=== PATIENT | male | born 1975 | race Caucasian/White ===

== ENCOUNTER 2017-07-04 16:16 | Emergency (ER) | payer MEDICARE, SELFPAY ==
[2017-07-04 16:17] VITALS: BP 152/106; PULSE 105; RESP 17; TEMP 37.2; O2SAT 97; BMI 29.2
--- NOTE | 2017-07-04 16:35 | CT_ITS ---
CT Spine Lumbar W/O Contrast INDICATION: BACK PAIN AFTER POP IN BACK 07/03/17 8 PREV BACK SURGERIES COMPARISON: None TECHNIQUE: High-resolution axial CT imaging of the lumbar spine with coronal and sagittal reformatted images. FINDINGS: There were postsurgical changes from L4-S1 interbody fusion and pedicle screws in the L4 and S1 levels bilaterally with vertical fixation rods. There is normal lumbar lordosis. Mild left-sided disc osteophyte formation is noted at L4-5 and L5-S1 resulting in moderate neuroforaminal narrowing. The level above the fusion, L3-4 demonstrates mild diffuse disc bulging. There is no evidence of fracture or listhesis. There is normal alignment of the SI joints. CT/Spine Lumbar without Contrast IMPRESSION: Postsurgical and mild degenerative changes at the lumbar spine as detailed above. No evidence of osseous injury or listhesis. at 1733 Reported and signed by: Sunitha Sesay MD Electronically Signed: Sunitha Sesay MD at 17:31 EDT Tel , Service support ,
[2017-07-04] MEDS: Ketorolac 30 MG/ML Syringe IV (16:49)
--- NOTE | 2017-07-04 18:08 | ED.VISSUMM ---
- ER Visit Summary Date of Service: 07/04/17 Chief Complaint: Back pain History of Present Illness: The patient is a 41 M presenting for evaluation secondary to back pain. Patient has a prior history of 8 back surgeries and both the placement and removal of a lumbar stimulator. Patient states that today he had a sudden onset of back pain. He states that he was going from a sitting to a standing position and felt a sudden severe pop in his lower back and started to have pain that went from his lumbar back down to his left buttock, and numbness that went from his left thigh all the way down to his left toes. Patient states that he has not had any bowel or bladder incontinence, denies any fevers, denies any recent injections, history of IV drug use, or procedures. Denies any fevers or weight loss. Patient states that he took aspirin which did not alleviate his symptoms. Pain is worse with movement and with palpation. Physical Examination: Vitals: Within normal limits General: Well-nourished well-developed no acute distress Head: Normocephalic atraumatic ENT: Moist mucous membranes Neck: Supple no JVD Cardiovascular: Heart regular rate and rhythm no murmurs Respiratory: Respirations nondistressed, lung sounds clear to auscultation bilaterally Abdominal: Soft, nontender, nondistended, normal bowel sounds, no evidence of abdominal masses or pulsatile mass Back: Normal to inspection, both midline lumbar as well as left-sided paraspinal tenderness to palpation, straight leg raise positive on the left at approximately 15? Extremities: Nontender, nonedematous, 2+ radial and PT pulses bilaterally symmetric Skin: Normal color no rash Neuro: 5/5 strength hip flexion, knee flexion, knee extension, dorsiflexion, plantarflexion. Left-sided extensor hallucis longus is 4 out of 5 while right side is 5 out of 5 sensation intact over all dermatomes of the lower extremities bilaterally, 2+ patellar and Achilles reflexes bilaterally symmetric, negative clonus bilaterally Test Results: CT lumbar spine shows L4 and L5 osteophytes that are causing foraminal narrowing. Emergency Department Course and Treatment: Patient presented secondary to back pain. He does have radiation of the pain to the left side, and weakness over the L5-S1 dermatome. CT showed some neuroforaminal narrowing in this area, but this point there is no evidence of spinal epidural hematoma, abscess, cauda equina syndrome, or reason for urgent surgical intervention. At this point I believe the patient can be treated with a course of Medrol. Patient has a spine surgeon in [place], he was recommended to follow-up there. He was given signs and symptoms for which return. Disposition: Discharge Impression: 1. Lumbar radiculopathy This note was generated with [employer] dictation software. It may contain incorrect words, spelling, and punctuation that were not noted in review of the chart prior to signing ED Disposition - Plan for ED Patient: Disposition: Home or Assisted Living Chief Complaint: Back Diagnosis: Lumbar radiculopathy, acute Instructions: ED Sciatica Prescriptions: MethylPREDNISolone DosePak [Medrol DosePak] 4 mg PO UD #1 box Additional Instructions: Followup with your spine surgeon
--- NOTE | 2017-07-04 18:12 | ED.DCSUM_ITS ---
- ER Visit Summary Date of Service: 07/04/17 Chief Complaint: Back pain History of Present Illness: The patient is a 41 M presenting for evaluation secondary to back pain. Patient has a prior history of 8 back surgeries and both the placement and removal of a lumbar stimulator. Patient states that today he had a sudden onset of back pain. He states that he was going from a sitting to a standing position and felt a sudden severe pop in his lower back and started to have pain that went from his lumbar back down to his left buttock , and numbness that went from his left thigh all the way down to his left toes. Patient states that he has not had any bowel or bladder incontinence, denies any fevers, denies any recent injections, history of IV drug use, or procedures. Denies any fevers or weight loss. Patient states that he took aspirin which did not alleviate his symptoms. Pain is worse with movement and with palpation. Physical Examination: Vitals: Within normal limits General: Well-nourished well-developed no acute distress Head: Normocephalic atraumatic ENT: Moist mucous membranes Neck: Supple no JVD Cardiovascular: Heart regular rate and rhythm no murmurs Respiratory: Respirations nondistressed, lung sounds clear to auscultation bilaterally Abdominal: Soft, nontender, nondistended, normal bowel sounds, no evidence of abdominal masses or pulsatile mass Back: Normal to inspection, both midline lumbar as well as left-sided paraspinal tenderness to palpation, straight leg raise positive on the left at approximately 15? Extremities: Nontender, nonedematous, 2+ radial and PT pulses bilaterally symmetric Skin: Normal color no rash Neuro: 5/5 strength hip flexion, knee flexion, knee extension, dorsiflexion, plantarflexion. Left-sided extensor hallucis longus is 4 out of 5 while right side is 5 out of 5 sensation intact over all dermatomes of the lower extremities bilaterally, 2+ patellar and Achilles reflexes bilaterally symmetric , negative clonus bilaterally Test Results: CT lumbar spine shows L4 and L5 osteophytes that are causing foraminal narrowing. Emergency Department Course and Treatment: Patient presented secondary to back pain. He does have radiation of the pain to the left side, and weakness over the L5-S1 dermatome. CT showed some neuroforaminal narrowing in this area, but this point there is no evidence of spinal epidural hematoma, abscess, cauda equina syndrome, or reason for urgent surgical intervention. At this point I believe the patient can be treated with a course of Medrol. Patient has a spine surgeon in [place], he was recommended to follow-up there. He was given signs and symptoms for which return. Disposition: Discharge Impression: 1. Lumbar radiculopathy This note was generated with [employer] dictation software. It may contain incorrect words, spelling, and punctuation that were not noted in review of the chart prior to signing ED Disposition - Plan for ED Patient: Disposition: Home or Assisted Living Chief Complaint: Back Diagnosis: Lumbar radiculopathy, acute Instructions: ED Sciatica Prescriptions: MethylPREDNISolone DosePak [Medrol DosePak] 4 mg PO UD #1 box Additional Instructions: Followup with your spine surgeon
[2017-07-04 18:26] VITALS: RESP 16
== END 2017-07-04 18:26 | disposition home or self-care (01) ==
PROVIDERS: Emergency Provider Emergency Medicine
DX: M54.16 Radiculopathy, lumbar region (principal)
CPT/HCPCS: 72131; 96374; 99282; A4216

== ENCOUNTER 2017-09-12 17:29 | Emergency (ER) | payer MEDICARE, SELFPAY ==
[2017-09-12 17:30] VITALS: BP 172/104; PULSE 111; RESP 20; TEMP 37.8; O2SAT 99; BMI 26.2
--- NOTE | 2017-09-12 17:38 | CT_ITS ---
STUDY: CT BRAIN WITHOUT CONTRAST REASON FOR EXAM: Male, 41 years old. Postop status post craniotomy RADIATION DOSAGE (If Supplied By Facility): CTDIvol = ( 44.99 ) mGy, DLP = ( 914.22 ) mGycm TECHNIQUE: Transaxial CT imaging of the brain was performed without administration of intravenous contrast material. Individualized dose optimization techniques were used for this CT. COMPARISON: None. FINDINGS: Normal soft tissue structures. Postop change status post suboccipital craniectomy. There is a fluid collection noted in the soft tissues in the scalp at the operative site Normal size ventricles and extra-axial spaces for the patient's age. Normal white matter tracts of the cerebral hemispheres. Normal basal ganglia and thalami. Normal brainstem. Normal cerebellum. There is no intracranial hemorrhage. There are no findings of an acute ischemic infarction. Mucous retention cyst in left sphenoid sinus. CT/Brain/Head without Contrast IMPRESSION: Postsurgical changes. No evidence for acute intracranial bleed Electronically Signed: Yan Sánchez MD at 19:26 EDT , Service support ,
--- NOTE | 2017-09-12 17:39 | EKG12_ITS ---
Test Reason : CP Blood Pressure : / mmHG Vent. Rate : 106 BPM Atrial Rate : 106 BPM P-R Int : 162 ms QRS Dur : 088 ms QT Int : 324 ms P-R-T Axes : 026 005 000 degrees QTc Int : 430 ms Sinus tachycardia Nonspecific T wave abnormality Abnormal ECG Confirmed by JUNAID LÓPEZ, GHAZAL ([id number]), brands editor KATELYN WORTHINGTON ([id number]) on 09/15/2017 1:25:00 PM Referred By: YOLANDA Confirmed By:GHAZAL QUIROGA MD
--- NOTE | 2017-09-12 17:43 | NURSING ---
NO OLD EKGS
[2017-09-12 17:58] LABS: Absolute Lymphocyte Count 1.58 X10^3/ul (0.83-4.51); Absolute Neutrophil Count 5.1 X10^3/uL (2.0-7.7); Basophil# 0.03 X10^3/uL; Basophil% 0.4 % (0-1); Eosinophil# 0.09 X10^3/uL; Eosinophils% 1.2 % (0-5); Hematocrit 43.1 % (40-54); Hemoglobin 14.1 g/dl (13.0-16.5); Lymphocyte # 1.58 X10^3/ul (4.0); Lymphocyte % 21.5 % (19-41); Mean Corp Hgb Conc 32.7 g/gl (32-36); Mean Corpuscular Hgb 28.8 pg (27.0-32.0); Mean Corpuscular Volume 88.1 fL (80-94); Mean Platelet Vol. 9.7 fl (6.2-12.0); Monocyte# 0.53 X10^3/uL; Monocyte% 7.2 % (0-10); Neutrophil # 5.11 X10^3/uL (2.7-7.7); Neutrophil % 69.4 % (47-70); Platelet Count 334 K/mm3 (150-450); RBC Distribution Width CV 14.3 % (11.6-14.6); RBC Distribution Width SD 45.9 fl (35.1-43.9); Red Blood Count 4.89 M/mm3 (4.6-6.2); White Blood Count 7.4 K/mm3 (4.4-11.0)
[2017-09-12 18:01] LABS: POSITIVE COUNT NO; POSITIVE DIFFERENTIAL NO; POSITIVE MORPHOLOGY NO
[2017-09-12 20:01] VITALS: PULSE 85; RESP 17; O2SAT 98
--- NOTE | 2017-09-12 20:10 | ED.DCSUM_ITS ---
- ER Visit Summary Date of Service: 09/12/17 Chief Complaint: Fall unknown reason with blunt head trauma History of Present Illness: The patient is a 41 M who was at home. He states he fell. He is uncertain whether he passed out or is amnestic because he hit his head. He recalls no prodrome. He is status post craniotomy for resection of brain mass. This was performed by Dr. Pham at [facility]. He states the operation was in July. He does report headache and feeling nauseous. He denies double vision, blurred vision loss of vision. Denies ringing in his ears. Denies decreased hearing. He denies any neck pain. Denies any paresthesia, anesthesia motors. He denies chest pain, palpitations or rapid heartbeat. He denies shortness of breath, cough or dyspnea on exertion. He does report nausea without vomiting or diarrhea. He is on no anticoagulant. He has no other complaints. Physical Examination: Vital signs are noted and are marked for an elevated blood pressure 172/104. Incision site is intact without evidence infection. There is no hemotympanum. There is no CSF otorrhea or rhinorrhea. There is no septal deviation hematoma. There is no TMJ tenderness. There is no pain the patient cervical spine. Trach is midline. Heart is regular without murmur, gallop or rub. S1 and S2 are normal. Lungs are clear to auscultation with good movement of air bilaterally. Abdomen soft nontender. He is alert oriented ?3. There is no motor sensory deficit. Gait was observed and normal. Cranial 2 through 12 intact. Test Results: EKG was obtained and revealed a sinus rhythm rate of [address]-T wave changes. LA interval and QRS duration are normal. CT of the head reviewed by me revealed no acute intracranial process. Radiologist interpretation was post operative changes. Emergency Department Course and Treatment: Will obtain hemogram to assess H&H. EKG to evaluate for cardiac ischemia. He is placed on a monitor to evaluate for cardiac dysrhythmia. Monitor revealed a sinus rhythm without ectopy. Treatment Plan: Since workup is unremarkable he will be discharged to home with appropriate home-going instructions. Disposition: Discharged to home Impression: 1. Closed head injury 2. Fall/syncope with loss of conscious unknown etiology This note was generated with [employer] software. It may contain incorrect words, spelling, and punctuation that were not noted in review of the chart prior to signing ED Disposition - Plan for ED Patient: Disposition: Home or Assisted Living Chief Complaint: Head Injury Instructions: ED Head Injury Closed, ED Fainting Unkn Cause Referrals: Care Physician,No Primary [Primary Care Provider] - Doctor,Your [STAFF PHYSICIAN] - As Needed
[2017-09-12 20:23] VITALS: BP 142/90; PULSE 99; RESP 18; O2SAT 98
== END 2017-09-12 20:23 | disposition home or self-care (01) ==
PROVIDERS: Emergency Provider Emergency Medicine
DX: S06.9X9A Unspecified intracranial injury with loss of consciousness of unspecified duration, initial encounter (principal); W19.XXXA Unspecified fall, initial encounter; Y93.9 Activity, unspecified; Y92.9 Unspecified place or not applicable; R55 Syncope and collapse; R00.0 Tachycardia, unspecified
CPT/HCPCS: 70450; 85025; 93005; 99284

== ENCOUNTER 2018-04-22 17:01 | Emergency (ER) | payer MEDICARE, SELFPAY ==
[2018-04-22 17:03] VITALS: BP 148/104; PULSE 122; RESP 18; TEMP 37.2; O2SAT 99; BMI 26.4
--- NOTE | 2018-04-22 18:26 | ED.DCSUM_ITS ---
- ER Visit Summary Date of Service: 04/22/18 Chief Complaint: Nosebleed [] History of Present Illness: The patient is a 42 M [presents the emergency department complaint of a nosebleed that started about an hour ago. Patient states he was going to get in the shower when he started pouring blood from the right side of his nose. Patient states now the blood is coming on both sides. Patient is not on any blood thinners. He denies any trauma to his nose. Patient does not get frequent nosebleeds. Patient's only medical history is history of a brain tumor that required craniotomy.] Physical Examination: [HEENT-PERRLA, EOMI. Cranial nerves II through XII grossly intact. TMs clear. Mucous membranes moist. No adenopathy. Right nasal vault-patient has active bleeding and I am unable to visualize the source. Patient has blood down the oropharynx. Cardiovascular-regular rate and rhythm without murmur or ectopy Lungs-clear to auscultation, chest wall stable without crepitus or subcu emphysema Abdomen-normoactive bowel sounds, soft, nontender, no rebound or rigidity, no peritoneal signs. Extremities-intact ?4, normal range of motion, normal pulses, atraumatic] Test Results: [None indicated] Emergency Department Course and Treatment: [Patient had a Rhino Rocket placed in the right nasal vault and he was observed in the emergency department for over an hour. Patient had no further bleeding on the posterior oropharynx. There was no bleeding from the left side of the nose.] Treatment Plan: [Patient will be started on Augmentin and will be referred to ENT for follow-up. Patient also advised to monitor his blood pressure at home and keep a journal and follow-up with primary care physician.] Disposition: [Discharged home in stable condition] Impression: [Right epistaxis-resolved] This note was generated with [employer] dictation software. It may contain incorrect words, spelling, and punctuation that were not noted in review of the chart prior to signing ED Disposition - Plan for ED Patient: Referrals: Care Physician,No Primary [Primary Care Provider] -
--- NOTE | 2018-04-22 18:26 | ED.DEP ---
ED Disposition - Plan for ED Patient: Instructions: Nosebleed Prescriptions: Amoxicillin/Potassium Clav [Augmentin 875-125 Tablet] 1 ea PO BID #10 tab Referrals: Care Physician,No Primary [Primary Care Provider] - Milo Gonzalez MD [STAFF PHYSICIAN] - 3-5 Days
[2018-04-22 18:50] VITALS: BP 146/81; PULSE 85; RESP 18; O2SAT 99
== END 2018-04-22 18:51 | disposition home or self-care (01) ==
LOC: ED 18:28
PROVIDERS: Emergency Provider Emergency Medicine
DX: R04.0 Epistaxis (principal); Z72.0 Tobacco use
CPT/HCPCS: 30901; 99282

== ENCOUNTER → 2018-11-22 09:14 | Outpatient (CLI) | payer MEDICARE, SELFPAY ==
--- NOTE | 2018-11-22 09:15 | RAD_ITS ---
STUDY: X-RAY - RIGHT KNEE REASON FOR EXAM: Male, 42 years old. Injury 4 days ago. Difficulty bending knee TECHNIQUE: 3 view(s) of the knee. COMPARISON: None. FINDINGS: Normal visualized distal femur. Normal visualized proximal tibia and fibula. Normal proximal tibiofibular articulation. There is no demonstrated fracture. Normal medial femorotibial compartment. Normal lateral femorotibial compartment. Normal patellofemoral articulation. There is no demonstrated joint effusion. The soft tissue structures are unremarkable. RAD/Knee 4 or More Views IMPRESSION: Normal x-ray examination of the knee. Electronically Signed: Luke Manuel DO at 17:25 EDT Tel [phone], Service support ,
--- NOTE | 2018-11-22 09:15 | RAD_ITS ---
STUDY: X-RAY - RIGHT ANKLE REASON FOR EXAM: Male, 42 years old. Injury 4 days ago. Pain and swelling. TECHNIQUE: 3 view(s) of the ankle. COMPARISON: None. FINDINGS: Normal visualized distal tibia and fibula. Normal medial and lateral malleoli. Normal tibiotalar articulation and ankle mortise. Normal visualized talus and calcaneus. The visualized subtalar, talonavicular, calcaneocuboid and tarsal articulations are normal. Mild soft tissue swelling over the anteromedial ankle. RAD/Ankle min 3 Views IMPRESSION: Soft tissue swelling without fracture or dislocation. Electronically Signed: Luke Manuel DO at 17:25 EDT Tel [phone], Service support ,
== END ==
PROVIDERS: Referring Provider Orthopaedic Surgery; Visit Provider Orthopaedic Surgery
DX: M25.571 Pain in right ankle and joints of right foot (principal); M25.561 Pain in right knee
CPT/HCPCS: 73564; 73610

== ENCOUNTER 2018-12-13 10:03 | Outpatient (RCR) | payer MEDICARE, SELFPAY ==
[2018-12-01 10:00] VITALS: BMI 26.4
--- NOTE | 2018-12-13 12:07 | HP.PTEVAL ---
Patient's Visit Information NATALI BABIN is a 43 year old M referred to Physical Therapy by Tima Wing DO with a diagnosis of R ACL tear and LE Fx. Date of Evaluation: 12/13/18 Physical Therapist: Edi Baron, PT, ATC - Visit Plan Frequency: 2x /Week Duration: 4 Weeks Plan: R HS strengthening, core stab ex, R ankle stretching and strengthening, balnce and proprio, bike, and HEP - Subjective Findings: Pt was getting out of truck and when he hopped down his injury occured. The inital injury occured around 4 weeks ago. Pt has had previous surgery to remove brain tumor in July of 2018. Pt. stated he has a lot of edema. Pt states pain at rest is 4/10 and does feel discomfort that he believes is due to the edema. Pt has stumbled with crutches and caught himself with injured leg, casuing increased pain. Pt. is NWB. Pt. states he has numbness and tingling in R ankle that does go up the leg, but not above the knee. Pt reports he is able to bend R knee. Pt lives by himself and is able to perfrom ADLs as needed. Pt. is able to go up/down stairs using crutches without issues. - Pain R LE Fx Pain Intensity (Out of 10): 4 Pain Intensity Range: 4 - Objective Neuro: B LE sensation is WNL to light touch. girth at ankle: L 56 cm, R 60 cm. Palpation: Sig swelling noted. No sig swelling. Ankle ROM: L ankle df= 20, pf= 45. R ankle df= 0, PF= 30. MMT: L ankle 5/5, R ankle 3/5 and painful - Goals Goal 1:: Decrease R LE pain x 50% to aid with sleep Goal Time Frame: 4-6 Weeks Goal 2:: Increae R LE strength x 1 grade to aid with RTW Goal Time Frame: 4-6 Weeks Goal 3:: Increase R ankle DF ROM x 10 degrees to aid with resotring a more normalised gait pattern Goal Time Frame: 4-6 Weeks Goal 4:: I with HEP - Rehabilitation Potential Physical Therapy Diagnosis: R LE pain, weakness, and limited ROM secondary to R ACL tear and LE Fx. Rehabilitation Potential: Good - Anticipated Interventions Patient/Client Instruction: Educate patient on: Condition, Plan of Care For the Purpose of:: To improve self management Therapeutic Exercise to Include: Strength training, Endurance training, Balance training, Dynamic Lumbar Stabilization For the Purpose of:: To decrease pain, To increase ROM, To improve muscle performance and motor function Cryotherapy (ice pack, ice massage): Yes For the Purpose of:: To decrease pain Thank you for the opportunity to evaluate your patient. For Medicare and Medicare HMO plans, please review the plan of care and approve it. It will need to be FAXED BACK to us at [phone] for Medicare purposes. For Medicare only, by signing this I certify the plan of care. Please let me know if there are questions or concerns regarding this plan of care. Physician Signature: Date:
--- NOTE | 2019-01-03 08:57 | HP.PT.NRP ---
HP - Discharge Summary (1) - Patient Information NATALI BABIN was seen in my office for initial evaluation on 12/13/18. The following Plan of Care was established for this patient: Initial Frequency: 2x /Week Initial Duration: 4 Weeks - Anticipated Interventions Patient/Client Instruction: Educate patient on: Condition, Plan of Care For the Purpose of:: To improve self management Therapeutic Exercise to Include: Strength training, Endurance training, Balance training, Dynamic Lumbar Stabilization For the Purpose of:: To decrease pain, To increase ROM, To improve muscle performance and motor function Cryotherapy (ice pack, ice massage): Yes For the Purpose of:: To decrease pain This patient was last seen in our office . Pertinent comments regarding their Physical therapy will appear below: Pt was evaluated on the date of 12/13/18 for a R ACL tear. Pt did not show up for his following 3 appointments, and is discontinued at this time. At this point I will be discontinuing this patient from physical therapy. I would be happy to see this patient again in the future if found appropriate by the physician. Thank you! Edi Baron, PT, ATC
== END 2018-12-13 19:00 | disposition home or self-care (01) ==
LOC: PT 10:03
PROVIDERS: Referring Provider Orthopaedic Surgery; Visit Provider Orthopaedic Surgery
DX: S83.511D Sprain of anterior cruciate ligament of right knee, subsequent encounter (principal); S82.891D Other fracture of right lower leg, subsequent encounter for closed fracture with routine healing; S82.831D Other fracture of upper and lower end of right fibula, subsequent encounter for closed fracture with routine healing
CPT/HCPCS: 97161

== ENCOUNTER → 2019-01-12 09:28 | Outpatient (CLI) | payer MEDICARE, SELFPAY ==
[2018-12-01 10:00] VITALS: BMI 26.4
--- NOTE | 2019-01-12 09:30 | RAD_ITS ---
STUDY: X-RAY - RIGHT ANKLE REASON FOR EXAM: Male, 43 years old. Ankle pain. Status post fall. TECHNIQUE: 3 view(s) of the ankle. COMPARISON: None. FINDINGS: Normal visualized distal tibia and fibula. Normal medial and lateral malleoli. Normal tibiotalar articulation and ankle mortise. Normal visualized talus and calcaneus. The visualized subtalar, talonavicular, calcaneocuboid and tarsal articulations are normal. There is no demonstrated fracture. There is mild soft tissue swelling surrounding the ankle. RAD/Ankle min 3 Views IMPRESSION: Normal x-ray examination of the ankle. No acute fracture or subluxation seen. Electronically Signed: Na Watson MD at 0:07 EST , Service support ,
--- NOTE | 2019-01-12 09:30 | RAD_ITS ---
STUDY: X-RAY - RIGHT KNEE REASON FOR EXAM: Male, 43 years old. Knee pain, status post fall. TECHNIQUE: 4 view(s) of the knee. COMPARISON: None. FINDINGS: Normal visualized distal femur. Normal visualized proximal tibia and fibula. Normal proximal tibiofibular articulation. There is no demonstrated fracture. Normal medial femorotibial compartment. Normal lateral femorotibial compartment. Normal patellofemoral articulation. There is mild joint effusion. The soft tissue structures are unremarkable. RAD/Knee 4 or More Views IMPRESSION: Moderate joint effusion. Remainder of the x-ray of the right ring unremarkable. Electronically Signed: Na Watson MD at 0:08 EST , Service support ,
== END ==
LOC: HPRAD 09:30
PROVIDERS: Referring Provider Orthopaedic Surgery; Visit Provider Orthopaedic Surgery
DX: S82.201A Unspecified fracture of shaft of right tibia, initial encounter for closed fracture (principal); S93.401A Sprain of unspecified ligament of right ankle, initial encounter; W19.XXXA Unspecified fall, initial encounter
CPT/HCPCS: 73564; 73610

== ENCOUNTER 2019-01-19 10:50 | Outpatient (RCR) | payer MEDICARE, SELFPAY ==
[2019-01-12 09:35] VITALS: BMI 26.4
--- NOTE | 2019-01-19 11:40 | HP.PTEVAL ---
Patient's Visit Information NATALI BABIN is a 43 year old M referred to Physical Therapy by Tima Wing DO with a diagnosis of Right ACL tear. Date of Evaluation: 01/19/19 Physical Therapist: Miriam Pulido DPT - Visit Plan Plan: D/c to I HEP- pt does have Full ROM 0-[address] Manrique request. Educated on importance of maintaining ROM and strength. Educated on ACL rehabiliation guidelines and compliance. - Subjective Findings: Patient reports surgery for ACL Feb 06, [address] Manrique. Went to get out of the back of a pickup- fractured ankle and now has an ACL tear. MD wants him to have 0-120 flexion before surgery. Patient reports that at this point the knee is painful. He is using it more than he is supposed to. By the end of the day he is sore and painful. He started taking CBD oil and that helps a lot. Worst: /10 Agg: being up on it, trying to shovel, hyperextension Eases: CBD oil. Wears a knee brace all the time. Sleep: not disturbed. Pain is located in the anterior and the back. Described as sharp/shooting and dull and achy. Does have some N/T in the toes. Does radiate to the ankle due to the pain from the previous break. Wants him to be in a CAM walker but is instead wearing a work boot. 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 Plans to go back after surgery. PMHx/Meds: no changes since he saw Dr. Manrique. - Objective Posture: good throughout. Gait: slight deviation- decreased stance on the right LE with poor heel/toe pattern. SLS: 10 sec with increased muscle activation then LOB. HR/TR: able. Palpation: tender along medial and lateral joint line. ROm: 0-120 degrees in the right knee. Strength: Ankle: 5/5, Knee: 5/5, Hip: 4+/5- very hesistant to strength test his right knee. Flex: HS: moderate, Gastroc: moderate - Goals Goal 1:: Patient I with HEP - Rehabilitation Potential Physical Therapy Diagnosis: Patient presents with hypomobility- he has decresed strength and muscular endurance in the right knee after trauma- plans to have surgery in Feb. Rehabilitation Potential: Good - Anticipated Interventions Thank you for the opportunity to evaluate your patient. For Medicare and Medicare HMO plans, please review the plan of care and approve it. It will need to be FAXED BACK to us at [phone] for Medicare purposes. For Medicare only, by signing this I certify the plan of care. Please let me know if there are questions or concerns regarding this plan of care. Physician Signature: Date:
--- NOTE | 2019-03-01 10:46 | HP.PT.NRP ---
HP - Discharge Summary (1) - Patient Information NATALI BABIN was seen in my office for initial evaluation on 01/19/19. The following Plan of Care was established for this patient: This patient was last seen in our office . Pertinent comments regarding their Physical therapy will appear below: At this point I will be discontinuing this patient from physical therapy. I would be happy to see this patient again in the future if found appropriate by the physician. Thank you! SANJAY ZimmermanT
== END 2019-01-19 17:00 | disposition home or self-care (01) ==
LOC: PT 10:50
PROVIDERS: Referring Provider Orthopaedic Surgery; Visit Provider Orthopaedic Surgery
DX: S83.511D Sprain of anterior cruciate ligament of right knee, subsequent encounter (principal); S82.831D Other fracture of upper and lower end of right fibula, subsequent encounter for closed fracture with routine healing; S82.891D Other fracture of right lower leg, subsequent encounter for closed fracture with routine healing
CPT/HCPCS: 97110; 97161

== ENCOUNTER → 2019-02-06 13:11 | Outpatient (CLI) | payer MEDICARE, SELFPAY ==
[2019-01-12 09:35] VITALS: BMI 26.4
[2019-02-06 15:16] LABS: Absolute Lymphocyte Count 1.87 X10^3/uL (0.83-4.51); Absolute Neutrophil Count 6.6 X10^3/uL (2.0-7.7); Basophil# 0.09 X10^3/uL; Basophil% 0.9 % (0-1); Eosinophil# 0.23 X10^3/uL; Eosinophils% 2.3 % (0-5); Hematocrit 45.8 % (40-54); Hemoglobin 15.6 g/dL (13.0-16.5); Lymphocyte # 1.87 X10^3/ul (4.0); Lymphocyte % 18.3 % (19-41); Mean Corp Hgb Conc 34.1 g/dL (32-36); Mean Corpuscular Hgb 30.4 pg (27.0-32.0); Mean Corpuscular Volume 89.3 fL (80-94); Monocyte# 1.33 X10^3/uL; NRBC Flagged by Analyzer 0 % (0-5); Neutrophil # 6.62 X10^3/uL (2.7-7.7); Neutrophil % 64.9 % (47-70); Platelet Count 270 K/mm3 (150-450); RBC Distribution Width CV 12.2 % (11.6-14.6); RBC Distribution Width SD 40.2 fl (35.1-43.9); Red Blood Count 5.13 M/mm3 (4.6-6.2); White Blood Count 10.2 K/mm3 (4.4-11.0)
[2019-02-06 15:28] LABS: ALB/GLOB Ratio 1.1 RATIO (0.9-2.4); AST(SGOT) 22 U/L (15-37); Alanine Aminotransfer ALT/SGPT 49 U/L (16-61); Albumin, Serum 4.1 g/dL (3.2-5.0); Alkaline Phosphatase 124 U/L (45-117); Anion Gap 8 (5-15); BUN 9 mg/dL (7-18); Calcium,Total 9.2 mg/dL (8.5-10.1); Chloride 108 mmol/L (98-107); Creatinine, Serum 0.82 mg/dL (0.70-1.30); EST Glomerular Filtration Rate 109 mL/min (>60); Est Glom Filt Rate - Afr Amer 132 mL/min (>60); Globulin 3.7 g/dL (2.2-4.2); Glucose 90 mg/dL (74-106); Potassium 3.5 mmol/L (3.5-5.1); Protein, Total 7.8 g/dL (6.4-8.2); Sodium Level 140 mmol/L (136-145)
== END ==
PROVIDERS: Family Provider Family Medicine; PCP Family Medicine; Referring Provider Family Medicine; Visit Provider Family Medicine
DX: Z01.818 Encounter for other preprocedural examination (principal)
CPT/HCPCS: 36415; 80053; 85025

== ENCOUNTER 2019-02-20 09:10 | Day surgery (SDC) | payer MEDICARE, SELFPAY ==
[2019-01-12 09:35] VITALS: BMI 26.4
[2019-02-14 07:51] VITALS: BMI 26.4
--- NOTE | 2019-02-19 16:03 | PCM.HP.BLA ---
History and Physical Date of Admission: 02/20/19 Intake Vital Signs 02/14/19 Body Mass Index (BMI) 26.4 Intake Visit Reasons: RIGHT KNEE Is patient in pain?: Yes Allergies No Known Allergies Allergy (Verified 02/14/19 08:35) Medications NK 01/12/19 [History Confirmed 02/14/19] [facility] Surgical History (Updated 11/22/18 @ 09:28 by Ramiro Romo) H/O wrist surgery (Inactive) History of brain surgery (Inactive) History of lumbar surgery (Inactive) Social History (Updated 02/14/19 @ 10:44 by Tima Wing DO) Smoking Status: Smoker, status unknown HPI RIGHT KNEE: Details: Parts of this documentation were recorded by a scribe, this documentation accurately reflects the service provided and the decisions made by me, Tima Wing DO 02/14/19 0751. NATALI BABIN is a 43 year old M here today for a followup on his right knee. Patient states that he continues to have knee pain over his patella and posterior knee. He has knee swelling on and off. Patient denies any knee instability due to wearing his knee brace. Patient would like to discuss the surgery procedure and recovery. He has an MRI which is here for review. He did receive medical clearance to proceed ROS [facility] [place], [place] Reports joint pain, Reports joint swelling, Reports stiffness Skin/Breast Reports system reviewed and no additional complaints, except as docu Neuro Yes system reviewed and no additional complaints, except as docu Ortho Exam Right Knee Skin/Wound: No ecchymosis, No swelling KNEE: Right Knee Date of injury: 12/02/18 Skin/Wound: No erythema, No ecchymosis, No swelling Homans Sign: No Knee ROM: No ROM-Extension -20 to 0 (lacking 30), Yes ROM-Flexion 0-140 Examination: Yes Med jt line tenderness, No Lat jt line tenderness Stability: NML: Posterior Drawer, NML: Valgus 30, NML: Varus 30, 2+: Anterior Drawer Patella Translation: 1 Apprehension with Lateral Translation: No Patella Grind: No KNEE: synovial hypertrophy no joint effusion Nontender over fibular head or lateral collateral ligament no pain with varus stress testing no instability with varus stress testing Supplemental Info 01/12/2019 x-ray right knee: Normal 01/12/2019 x-ray right ankle: Normal 11/29/2018 MRI right knee: Full-thickness ACL rupture impaction fracture weightbearing portion of lateral femoral condyle with minimally depressed fracture of the posterior lip of the medial and lateral tibial plateau. Nondisplaced fibular head fracture questionable vertical tear anterior horn lateral meniscus. MRI quality is poor 11/29/2018 MRI right ankle: Nondisplaced posterior malleolar fracture rupture anterior tibiofibular ligament mild edema along the interosseous membrane tenosynovitis flexor tendons subcutaneous edema 11/22/2018 x-ray right knee joint effusion no fracture 11/22/2018 x-ray right ankle: no acute findings Assessment & Plan Problems 1. Sprain of anterior cruciate ligament of right knee, subsequent encounter S83.511D 2. Other tear of lateral meniscus, current injury, right knee, subsequent encounter S83.281D Plan Educated the patient about the anatomy of the knee. Spoke with him about his surgery procedure and recovery. If he has a meniscus repair, it will change his weightbearing status. Patient will not be in a knee brace detention. He will be in a knee immobilizer for 2 days post op. He will not be able to squat, lift, twisting post op. He should take a baby aspirin daily for 2 weeks. Reviewed the pre-operative plans with the patient. Risks and benefits of the procedure were fully explained, including but not limited to infection, neurovascular injury, continued pain, arthritis, stiffness, need for further surgery, re-injury, DVT, PE, general risks of anesthesia, and loss of limb or life. The patient understands all the risks and does wish to proceed with written consent. Follow up for 2 week post op appointment or sooner if pain, swelling, numbness or associated symptoms, or concerns develop. All questions answered. Patient in agreement of plan. Coding Level of Care Code Off vis,est,level 3 Diagnoses Sprain of anterior cruciate ligament of right knee, subsequent encounter S83.511D Other tear of lateral meniscus, current injury, right knee, subsequent encounter S83.281D I have re-examined the patient. There are no clinical changes since date of exam
[2019-02-20] VITALS (9 sets, daily range): BP systolic 143–162; BP diastolic 70–114; PULSE 75–103; RESP 15–18; TEMP 36.7–37.1; O2SAT 93–100; BMI 30.9
[2019-02-20] MEDS: Lactated Ringers 1,000 ML 100 ML IV ×2 (09:45→14:00)
[2019-02-20] MEDS: Cefazolin 2 GM in 0.9% Normal Saline 100 ML IV (11:13)
[2019-02-20] MEDS: Bupiv/Epi 0.25% 30 ML Vial (12:00)
--- NOTE | 2019-02-20 12:40 | RAD_ITS ---
STUDY: Fluoroscopic guidance for right-sided knee arthroscopy. REASON FOR EXAM: Male, 43 years old. Pain. ACL repair. COMPARISON: None. FINDINGS: Fluoroscopic guidance was provided for procedure of arthroscopy. The radiologist was not present in the room. 1 image was obtained during the exam revealing ACL repair surgery with narrowing of joint spaces more so medially. Fluoroscopy time is unavailable. RAD/Knee 1 or 2 Views IMPRESSION: Fluoroscopically guided knee arthroscopy procedure. For details please see operative report. Electronically Signed: Na Watson MD at 2:12 EST , Service support ,
[2019-02-20] MEDS: Bupivacaine Mpf 0.5% 30 ML VIAL (13:15)
[2019-02-20] MEDS: Epinephrine (1 mg/ml) 1 MG/ML VIAL (13:30)
--- NOTE | 2019-02-20 13:37 | PCM.DC.ORTHO ---
Discharge Diet: No Restrictions Call your doctor if you observe: Shortness of breath, Chest pain Additional Instructions: Ice and elevate next 72 hours .keep dressing on clean and dry for 48 hours then may remove begin showering daily but do not submerge in tub or pool. After shower may apply Band-Aids . Encourage knee range of motion weightbearing as tolerated, use crutches until confident in knee then may discontinue. No strenuous activity. When not ambulating keep iced and elevated next 72 hours. Allergies/Adverse Reactions: Allergies No Known Allergies Allergy (Verified 02/20/19 09:24) Medications to take at Discharge Acetaminophen [Tylenol Extra Strength] 500 - 1,000 mg PO Q6H PRN PRN 02/16/19 Ibuprofen [Ibu] 400 mg PO PRN PRN 02/16/19 Acetaminophen [Tylenol Extra Strength] 1,000 mg PO Q6H PRN #100 tab 02/20/19 Oxycodone [Oxyir] 5 mg PO Q4H PRN PRN #60 tablet 02/20/19 The following prescriptions were given: Oxycodone [Oxyir] 5 mg PO Q4H PRN PRN #60 tablet PRN Reason: Pain Or Fever Transmission Status: Received by [id number] Acetaminophen [Tylenol Extra Strength] 1,000 mg PO Q6H PRN #100 tab Transmission Status: Pending to [id number] Primary Care Physician: Celio Pearson MD [Primary Care Provider] - Test Results: Test results from this visit will be discussed in further detail at your follow-up appointment, if applicable. Please Follow Up With: Tima Wing DO - 2 weeks
--- NOTE | 2019-02-20 13:39 | OP.PCM_ITS ---
Report of Operation Date of Procedure: 02/20/19 Description of Surgical Findings:: Preoperative diagnosis: Right knee ACL rupture anterior horn lateral meniscus tear radial Postoperative diagnosis: ACL rupture anterior horn radial tear lateral meniscus grade 3 cartilage wear medial femoral condyle and apex of patella Procedure: Arthroscopic ACL reconstruction with semitendinosus RTI allograft x2 with quadruple folded diameter of 7.5 partial lateral meniscectomy chondroplasty medial femoral condyle and patella Implants: Arthrex ACL button 8.0 biocomposite tibial screw, ACL femoral button Anesthesia: General postoperative femoral block EBL: 15 Complications: None Condition: Stable to PACU Indication for procedure: 43-year-old male who sustained injury to right knee causing ACL rupture and anterior horn lateral meniscus tear. Discussed operative versus nonoperative intervention risk benefits and alternatives were reviewed including risk of bleeding infection nerve, artery, bone, tissue damage, blood clot need for further surgery and continued pain. Expected postoperative course postoperative physical therapy needs Procedure: Patient was met in the preoperative holding area. Once again the operative extremity was identified by both patient and physician and was marked. Patient was met by anesthesia and brought back to the operating room on a wheeled cart and transferred to the operating table in the supine position. Anesthesia was started. A well-padded tourniquet was placed on the right upper thigh. A right lower extremity leg vasquez was placed. The left lower extremity was well-padded the end of the bed was flexed to 90 degrees. The patient was prepped and draped in the usual sterile fashion and a timeout was called to ensure the proper patient procedure and extremity were being contemplated. An Esmarch was used to exsanguinate the extremity and the tourniquet was inflated to 300 mmHg. On the back table the allograft was prepared with 2 fiber link whipstitches and was sized as an 7-1/2 diameter graft required to semi- tendinosis graft to achieve this diameter. 11 blade scalpel was used to make a stab incision in the anterior lateral portal and the arthroscope was inserted into the intercondylar notch inflow and outflow tubes were attached and arthroscopic visualization began. The medial compartment was entered and 18- gauge gauge spinal needle was used to establish an anterior medial portal both portals were hugging the patellar tendon to aid in the ACL reconstruction visualization of the medial compartment with probing there was no meniscal capsular separation and no significant hyalin cartilage defects. The intercondylar notch was entered the stump of the ACL was found and was debrided and the footprints were prepared on the femoral and tibial side with a shaver and ArthroCare wand. The lateral compartment was entered and there was noted to be a radial tear of the anterior horn debrided with a shaver but there is no further meniscal pathology. There was an area of grade 3 cartilage wear that was in isolation over the medial femoral condyle there was no loose cartilage in the area. The patellofemoral space was investigated and required chondroplasty of free flap of patellar apex with grade 3 cartilage wear. At this point the arthroscope was repositioned into the medial portal and the femoral guide was used and set at 110 degrees and with the use of a flip cutter the femoral tunnel was made in the low posterior position the tunnel measured 30 mm. At this point a fiber stick was inserted through the cannula and was retrieved through the lateral portal instead it to itself for later use. Attention was then turned towards the tibial tunnel and once again with the use of a flip cutter set at 60 degrees the tibial tunnel was cut in a retrograde manner. Following this a guidepin was inserted through the tibial tunnel and a reamer was used to open the lateral cortex only. Shaver was then inserted through the tunnel and debris was removed we then retrieved the fiber wire through the tibial tunnel switched our arthroscope to a 70 degree camera and visualize the button passing through the femoral tunnel and flipping once we were assured the button was indeed flipped with fluoroscopy the graft was then advanced 25 mm into the femoral tunnel the graft was marked. At this point the graft was tensioned and cycled nitinol wire was passed anteriorly on the tibial socket and a 8 mm interference bio composite screw was inserted over the wire the remainder of the tensioning was performed in the femoral tunnel by advancing the white tails of the bone there was excellent positioning of the graft there was no graft impingement in full extension the intra-articular injection was made through the scope suture portals were closed with 3-0 nylon a 3-0 Vicryl was used as a subcutaneous stitch in the tibial incision and 3-0 nylon was used in the skin. Dressing was applied in the form of Xeroform 4 x 4 ABD web roll and an Harpal wrap and knee immobilizer patient tolerated the procedure well all counts were correct brought back to the PACU in stable condition
[2019-02-20] MEDS: oxyCODONE 5 MG Tablet PO (15:03)
== END 2019-02-21 12:19 | disposition home or self-care (01) ==
LOC: SDC 09:11 → AC 09:12
PROVIDERS: Family Provider Family Medicine; PCP Family Medicine; Referring Provider Orthopaedic Surgery; Visit Provider Orthopaedic Surgery
PROC: (CPT 29881; principal; 2019-02-20 10:10)
DX: S83.511A Sprain of anterior cruciate ligament of right knee, initial encounter (principal); S83.281A Other tear of lateral meniscus, current injury, right knee, initial encounter; X58.XXXA Exposure to other specified factors, initial encounter; Y93.9 Activity, unspecified; Y92.9 Unspecified place or not applicable; Y99.9 Unspecified external cause status; K21.9 Gastro-esophageal reflux disease without esophagitis; F17.200 Nicotine dependence, unspecified, uncomplicated
CPT/HCPCS: 01400; 29881; 29888; 64447; 73560; 76000; J7120; J2405

== ENCOUNTER 2019-04-04 14:30 | Outpatient (RCR) | payer MEDICARE, SELFPAY ==
[2019-03-05 10:16] VITALS: BMI 30.9
--- NOTE | 2019-03-08 10:54 | HP.PTEVAL_ITS ---
Patient's Visit Information NATALI BABIN is a 43 year old M referred to Physical Therapy by Tima Wing DO with a diagnosis of Right ACL and MFC Chondroplasty 02/20/19. Date of Evaluation: 03/08/19 Physical Therapist: Miriam Pulido DPT - Visit Plan Frequency: 2x /Week Duration: 4 Weeks Plan: ACL repair with MFC Chondroplasty- follow ACL protocol 02/20/19 Dr. Manrique- WBAT- focus on LE and core strength/stabilzation and functional mobility. - Subjective Findings: Patient had right ACL and MFC chondroplasty with a meniscus trim 02/[address] Manrique. Had sutures removed on 03/02. He was good with everything looked- he wants him to be without a brace and WBAT. Wants him to get rid of the crutches as soon as possible. He has to almost straight but it really hurts under the knee cap. Worst: 8/10 Agg: when he has it in one position to long then tries to move it. Pain is located behind the knee cap and behind the knee. Does wear an jeffrey bandage due to the pants rubbing on it. When he tries to put weight on it its pretty sore. Best: 0/10. Eases: sit down resting. Pain does not radiate- but he does report burning in the knee and goes down to the mid chowdhury- if active it goes to the ankle. Is currently using both crutches to ambulate around the house. He is staying with his friend- he does not have the ability to drive- so he wants to come 1x a week and do more home exercise program. No x-rays or MRI since surgery. Sleep: side sleeper its hard to get comfortable but is not waking him up. Work: a little bit of everything- handywork, farmers, does run some equiptment. is thinking maybe a brace after he is further into rehab. - Objective Posture: FH, RS, increased kyphosis. Gait: antalgic- ambulates with bilaterally axillary crutches with minimal to no weight through the right LE. When given instruction he can ambulate with a sinlge crutch with weight bearing but reports very painful under the knee cap- decrease stance with poor heel/toe pattern. Stairs: ascd/esc 8 nonrecip with 1 HR and reports severe discomfort under the knee cap on desc. HR/TR: diminished by 50% compared to other foot with reports of pain. SLS: weight shift only with pain and fear. Palpation: tender along patellar tendon, medial and lateral joint line and posterior knee. Observation: incision healing well no s/s of infection (educated on these). ROM: 15-90 degr ees with pain at end ranges. Girth: unable to obtain due to sweatpants. Strength: ankle: 5/5, Knee: quad set is visible but poor, Hamstrin-/5 with pain, Hip: 4/5 throughout- SLR moderate lag, core: fair. Flex: gastroc: moderate HS: severe. Patellar mobility: poor. Edema: moderate in knee - Goals Goal 1:: Patient will be I with HEP and progression Goal Time Frame: 4-6 Weeks Goal 2:: Patient will ambulate >300 feet with a normalized gait pattern Goal Time Frame: 4-6 Weeks Goal 3:: Patient will asc/desc 8 stairs recip with 1 HR and good control Goal Time Frame: 4-6 Weeks Goal 4:: Patient will demo 0-130 degrees of ROM in the right knee Goal Time Frame: 4-6 Weeks - Rehabilitation Potential Physical Therapy Diagnosis: Patient presents with hypomobility- he has decreased ROM, strength, flex and muscular endurance s/p ACL and MFC chondroplasty leading to abnormal gait and decreased ability to perform ADL's. Rehabilitation Potential: Fair - Anticipated Interventions Patient/Client Instruction: Educate patient on: Benefits of Fitness Program Therapeutic Exercise to Include: Strength training, Endurance training, Balance training, Coordination, Agility training, Body mechanics, Postural training, Flexibilty training, Gait and locomotor training, Passive ROM, Active ROM, Dynamic Lumbar Stabilization For the Purpose of:: To improve muscle performance and motor function TENS: Yes Thermo therapy (hot pack): Yes Ultrasound (thermal/non thermal): No Thank you for the opportunity to evaluate your patient. For Medicare and Medicare HMO plans, please review the plan of care and approve it. It will need to be FAXED BACK to us at [phone] for Medicare purposes. For Medicare only, by signing this I certify the plan of care. Please let me know if there are questions or concerns regarding this plan of care. Physician Signature: Date:___
--- NOTE | 2019-07-17 10:59 | HP.PT.NRP ---
NATALI BABIN was seen in my office for initial evaluation on 03/08/19. The following Plan of Care was established for this patient: Initial Frequency: 2x /Week Initial Duration: 4 Weeks Patient/Client Instruction: Educate patient on: Benefits of Fitness Program Therapeutic Exercise to Include: Strength training, Endurance training, Balance training, Coordination, Agility training, Body mechanics, Postural training, Flexibilty training, Gait and locomotor training, Passive ROM, Active ROM, Dynamic Lumbar Stabilization For the Purpose of:: To improve muscle performance and motor function TENS: Yes Thermo therapy (hot pack): Yes Ultrasound (thermal/non thermal): No This patient was last seen in our office . Pertinent comments regarding their Physical therapy will appear below: Patient has not attended physical therapy in over 8 weeks- appropriate for d/c and return to MD as appropriate. At this point I will be discontinuing this patient from physical therapy. I would be happy to see this patient again in the future if found appropriate by the physician. Thank you! Miriam Pulido DPT
== END 2019-04-04 19:00 | disposition home or self-care (01) ==
LOC: PT 14:30
PROVIDERS: Family Provider Family Medicine; PCP Family Medicine; Referring Provider Orthopaedic Surgery; Visit Provider Orthopaedic Surgery
DX: Z98.890 Other specified postprocedural states (principal); M25.561 Pain in right knee; M25.661 Stiffness of right knee, not elsewhere classified
CPT/HCPCS: 97014; 97110; 97161; 97164; G0283

== ENCOUNTER 2020-02-01 19:33 | Emergency (ER) | payer MEDICARE, SELFPAY ==
[2019-04-04 10:31] VITALS: BMI 30.9
[2020-02-01 19:34] VITALS: BP 150/106; PULSE 118; RESP 18; TEMP 37.2; O2SAT 98; BMI 31.5
--- NOTE | 2020-02-01 19:51 | EKG12_ITS ---
Test Reason : DYSRHYTHMIA Blood Pressure : / mmHG Vent. Rate : 085 BPM Atrial Rate : 085 BPM P-R Int : 174 ms QRS Dur : 092 ms QT Int : 356 ms P-R-T Axes : 031 006 016 degrees QTc Int : 423 ms Normal sinus rhythm Normal ECG Confirmed by JUNAID LÓPEZ, GHAZAL ([id number]), associate editor LUDY DAVID ([id number]) on 02/06/2020 9:39:05 AM Referred By: SCOTT Confirmed By:GHAZAL QUIROGA MD
--- NOTE | 2020-02-01 19:53 | ED.DCSUM_ITS ---
- ER Visit Summary Date of Service: 02/01/20 Chief Complaint: [Shortness of breath] History of Present Illness: The patient is a 44 M [presents to the emergency department complaint of shortness of breath that started 5 days ago. Patient states that he has had a cough and body aches as well as increased fatigue and really has not been up off the couch much. He denies any exposures to anybody with COVID-19. Patient lives alone. Patient states that a nurse that he knows referred him to the ER given that there is a family history of one of his siblings dying from sepsis and he was concerned about pneumonia and sepsis. Patient complains of sharp pain in his lungs with deep breath. He denies recent travel or surgery. No history of PE or DVT. Patient does have history of a brain tumor that was resected 3 years ago at [facility]. Has had fever at home up to 102. Patient said intermittent headaches.] Physical Examination: [HEENT-PERRLA, EOMI. Cranial nerves II through XII grossly intact. TMs clear. Mucous membranes moist. No adenopathy. Cardiovascular-regular rate and rhythm without murmur or ectopy Lungs-clear to auscultation, chest wall stable without crepitus or subcu emphysema Abdomen-normoactive bowel sounds, soft, nontender, no rebound or rigidity, no peritoneal signs. Extremities-intact ?4, normal range of motion, normal pulses, atraumatic] Test Results: [CBC with differential obtained showed a white of 6.8, hemoglobin 16.7, hematocrit 50, platelets 271. D-dimer was elevated 0.74. Rapid Covid antigen test was negative. Chest x-ray showed nothing acute. CTA of the chest obtained showed no evidence of PE or dissection. CT scan of the brain without contrast showed nothing acute. Patient was noted to have prior craniotomy. No new masses or hemorrhage noted. Chemistries unremarkable.] EKG obtained on arrival showed a sinus rhythm with a ventricular rate of 106 bpm with no acute ST segment changes. Troponin was less than 0.015. Emergency Department Course and Treatment: [ IV established on arrival. Patient had a PCR test ordered to evaluate for Covid given that his symptoms have been just over 5 days and antigen test may give false negative.] Treatment Plan: [Discharged home in stable condition. Patient advised to return if increasing shortness of breath or condition should worsen anyway. Patient to follow-up with primary care physician within next 3 to 5 days.] Patient advised to self quarantine. Disposition: [Discharged home in stable condition] Impression: [Viral URI-rule out COVID-19] This note was generated with [employer] dictation software. It may contain incorrect words, spelling, and punctuation that were not noted in review of the chart prior to signing ED Disposition - Plan for ED Patient: Referrals: Rasheed Casey MD [Primary Care Provider] -
--- NOTE | 2020-02-01 20:20 | RAD_ITS ---
STUDY: X-RAY CHEST REASON FOR EXAM: Male, 44 years old. DYSPNEA, SORE THROAT, FEVER, CHILLS, HEADACHE. HX OF BRAIN TUMOR TECHNIQUE: 1 view COMPARISON: Prior chest radiograph of 06/01/2014 FINDINGS: The lungs are clear and expanded. Mild chronic elevation of the right diaphragm. Normal size heart. Normal mediastinum and brandon. Normal visualized pulmonary arteries. Normal visualized aortic arch and descending thoracic aorta. Normal visualized thoracic spine. Normal visualized ribs, clavicles, and shoulders. There is no demonstrated abnormality of the visualized soft tissue structures of the upper abdomen. RAD/Chest 1 View (Portable) IMPRESSION: No acute cardiopulmonary findings or changes. Mild chronic elevation of the right diaphragm. Electronically Signed: Ela Lamb MD at 20:49 EST , Service support ,
[2020-02-01 20:47] VITALS: BP 150/106; PULSE 118; RESP 18; TEMP 37.2; O2SAT 98
[2020-02-01 20:58] LABS: Absolute Lymphocyte Count 2.01 X10^3/uL (0.83-4.51); Absolute Neutrophil Count 3.5 X10^3/uL (2.0-7.7); Basophil# 0.07 X10^3/uL; Eosinophil# 0.14 X10^3/uL; Eosinophils% 2.1 % (0-5); Hematocrit 49.9 % (40-54); Hemoglobin 16.7 g/dL (13.0-16.5); Lymphocyte # 2.01 X10^3/ul (4.0); Lymphocyte % 29.7 % (19-41); Mean Corp Hgb Conc 33.5 g/dL (32-36); Mean Corpuscular Volume 92.6 fL (80-94); Monocyte# 0.94 X10^3/uL; Monocyte% 13.9 % (0-10); NRBC Flagged by Analyzer 0 % (0-5); Neutrophil # 3.53 X10^3/uL (2.7-7.7); Neutrophil % 52.3 % (47-70); Platelet Count 271 K/mm3 (150-450); RBC Distribution Width CV 15.1 % (11.6-14.6); RBC Distribution Width SD 46.5 fl (35.1-43.9); Red Blood Count 5.39 M/mm3 (4.6-6.2); White Blood Count 6.8 K/mm3 (4.4-11.0)
--- NOTE | 2020-02-01 21:11 | CT_ITS ---
STUDY: CT BRAIN WITHOUT CONTRAST REASON FOR EXAM: Male, 44 years old. headache x few days. hx of cancerous brain tumor removed 3 years ago. hasnt been back for any check ups since. RADIATION DOSAGE (If Supplied By Facility): CTDIvol = ( 44.99 ) mGy, DLP = ( 931.09 ) mGycm TECHNIQUE: Transaxial CT imaging of the brain was performed without administration of intravenous contrast material. Individualized dose optimization techniques were used for this CT. COMPARISON: Prior head CT exam of 08/13/2017 FINDINGS: Normal soft tissue structures. Status post a wide posterior fossa craniectomy and reconstruction. Normal size ventricles and extra-axial spaces for the patient''s age. Normal white matter tracts of the cerebral hemispheres. Normal basal ganglia and thalami. Normal brainstem. Normal cerebellum. There is no intracranial hemorrhage. There are no findings of an acute ischemic infarction. Normal visualized paranasal sinuses. CT/Brain/Head without Contrast IMPRESSION: No acute intracranial findings. Negative for hemorrhage, hematoma or mass density. Negative for demarcation of a new nonhemorrhagic infarct zone. Postoperative posterior fossa changes status post a wide midline posterior fossa craniectomy and reconstruction procedure. Normal underlying cerebellum. Electronically Signed: Ela Lamb MD at 21:35 EST , Service support ,
[2020-02-01 21:31] LABS: D-Dimer Quantitative (DVT/PE) 0.74 FEU/ug/m (0.27-0.49)
--- NOTE | 2020-02-01 21:32 | CT_ITS ---
STUDY: CTA CHEST REASON FOR EXAM: Male, 44 years old. ELEVATED D DIMER,SOB,FEVER,CHILLS,CHEST PAIN SINCE TUESDAY -- HX:BRAIN CANCER WITH CRANIOTOMY RADIATION DOSAGE (If Supplied By Facility): CTDIvol = ( 11.45 ) mGy, DLP = ( 490.30 ) mGycm TECHNIQUE: The examination was performed with the intravenous administration of IV 100mL Isovue-370. Post-processing of the angiographic images was performed, with multiplanar reformation and 3D reconstruction. Individualized dose optimization techniques were used for this CT. COMPARISON: Portable chest exam of 02/01/2020 FINDINGS: Normal enhancement of the main pulmonary artery and right and left pulmonary arteries. Normal enhancement of the bilateral peripheral pulmonary arteries. There is no demonstrated pulmonary embolism. Mild elongation of the thoracic aorta without plaque, aneurysm or dissection. Normal heart and pericardium. Shotty middle mediastinal lymph nodes. Shotty hilar lymph nodes. Normal visualized trachea and bronchi. The lungs are well expanded. Normal pulmonary parenchyma. Normal pleura. Negative for pleural effusion. Normal chest wall structures. There are degenerative changes of thoracic spine. Fatty liver. No acute findings in the uppermost abdomen. CT/CTA Chest W/WO Contrast IMPRESSION: Negative for pulmonary embolus. Mild elongation of the thoracic aorta without dissection, minimal plaque or aneurysm. Normal heart without pericardial effusion or coronary calcifications. Negative for consolidation, atelectasis, other infiltrates or pleural effusion. No acute bone findings. Fatty liver. No acute findings in the upper abdomen. Electronically Signed: Ela Lamb MD at 22:42 EST , Service support ,
[2020-02-01 22:18] VITALS: BP 156/95; PULSE 98; RESP 20; TEMP 36.2; O2SAT 98
[2020-02-01 23:00] LABS: Anion Gap 4 (5-15); BUN 9 mg/dL (7-18); Calcium,Total 8.8 mg/dL (8.5-10.1); Chloride 106 mmol/L (98-107); Creatinine, Serum 0.82 mg/dL (0.70-1.30); EST Glomerular Filtration Rate 108 mL/min (>60); Est Glom Filt Rate - Afr Amer 131 mL/min (>60); Estimated Creatinine Clearance 122.44 ml/min; Glucose 113 mg/dL (74-106); Lactic Acid 1.4 mmol/L (0.4-1.9); Potassium 3.7 mmol/L (3.5-5.1); Sodium Level 139 mmol/L (136-145)
--- NOTE | 2020-02-01 23:04 | ED.DEP ---
ED Disposition - Plan for ED Patient: Instructions: ED Upper Resp Infec No Abx Tx Referrals: Rasheed Casey MD [Primary Care Provider] - 5-7 Days
[2020-02-01 23:08] VITALS: BP 166/100; PULSE 92; RESP 17; O2SAT 100
== END 2020-02-01 23:12 | disposition home or self-care (01) ==
LOC: ED 19:57
PROVIDERS: Emergency Provider Emergency Medicine; PCP Family Medicine
DX: J06.9 Acute upper respiratory infection, unspecified (principal); Z20.828 Contact with and (suspected) exposure to other viral communicable diseases
CPT/HCPCS: 36415; 70450; 71045; 71275; 80048; 83605; 84484; 85025; 85379; 87040; 87426; 87635; 87804; 93005; 99285; Q9967; A4216; U0003

== ENCOUNTER 2020-02-04 13:20 | Emergency (ER) | payer MEDICARE, SELFPAY ==
[2020-02-04 13:21] VITALS: BP 135/105; PULSE 88; RESP 16; TEMP 36; O2SAT 99; BMI 30.7
--- NOTE | 2020-02-04 14:24 | EKG12_ITS ---
Test Reason : SOB Blood Pressure : / mmHG Vent. Rate : 106 BPM Atrial Rate : 106 BPM P-R Int : 178 ms QRS Dur : 088 ms QT Int : 338 ms P-R-T Axes : 025 005 009 degrees QTc Int : 448 ms Sinus tachycardia Nonspecific T wave abnormality Abnormal ECG Confirmed by VA LÓPEZ, NIC ([id number]), editor school photograph LUDY DAVID ([id number]) on 02/05/2020 9:11:19 AM Referred By: AVNI GARDNER Confirmed By:NIC DE DIOS MD
--- NOTE | 2020-02-04 14:26 | ED.DCSUM_ITS ---
History of Present Illness Chief Complaint: Cough Informant: Patient Onset: Days - 9 days Context: Gradual Onset Current Severity: Mild Maximum Severity: Moderate Narrative: Patient presents with continued congestion, cough, shortness of breath. He was seen here in the ER the and at that time and had symptoms for 5 days. He had a fever up to 102. Rapid Covid test performed that night was negative and had a negative CTA chest. PCR send out was obtained but results are still pending. Patient states he continues to have significant shortness of breath and feels like his breathing is getting worse. He is woken multiple times gasping for breath at night. He has still felt feverish but has not measured his temperature. - Past Medical History (1) Hypertension Status: Chronic (2) GERD (gastroesophageal reflux disease) Status: Chronic Past Medical History - Allergies and Home Meds Allergies/Adverse Reactions: Allergies No Known Allergies Allergy (Verified 02/04/20 13:23) Primary Care Physician: Rasheed Casey MD [Primary Care Provider] - Prior records reviewed: Yes Lives: Alone Smoking Status: Never smoker Review of Systems General: Reports: Fever Eyes: Denies: Visual changes - bilaterally ENT: Reports: Sore throat. Denies: Bilateral ear pain Cardiovascular: Denies: Chest pain Respiratory: Reports: Dyspnea, Cough. Denies: Sputum Gastrointestinal: Denies: Abdominal pain, Nausea, Vomiting, Diarrhea Skin: Denies: Rash Neurological: Denies: Headache Hematologic: Denies: Easy bruising, Easy bleeding Allergy: Denies: Uticaria Physical Exam Vital Signs/Narrative: Vital Signs Temp Pulse Resp BP Pulse Ox 02/04/20 13:21 96.8 F L 88 16 135/105 H 99 Inital Vital Signs reviewed: Yes General: Well nourished, Well developed Head: Normocephalic ENT: Moist mucous membranes Neck: Supple Cardiovascular: Regular rate, Regular rhythm Respiratory: No distress, CTA bilaterally Abdomen: Soft, Nontender, Normal bowel sounds Extremities: Nontender Skin: Normal color Neurological: Alert, Oriented x3 Psychological: Normal affect Diagnostic/Tx/Re-eval Impressions Chest X-Ray 02/04/20 15:00 IMPRESSION: Stable, nonacute portable x-ray examination of the chest. Electronically Signed: Serge Gonzalez MD ([place]) at 15:12 EST , Service support , Soft Tissue Neck CT 02/04/20 16:18 IMPRESSION: Normal enhanced CT examination of the soft tissues of the neck. Prior occipital craniectomy. No visualized intracranial abnormality. Electronically Signed: Latoya Fraga MD at 17:57 EST Tel , Service support , 02/04/20 15:00 Chest 1 View (Portable) [RAD] Stat 02/04/20 16:18 CT Neck [Soft Tissue Neck WITH Contrast] [CT] Stat 02/04/20 14:40 Mucosa - Nasopharyngeal Respiratory Panel (PCR) - Final Laboratory Results 02/04/20 02/04/20 02/04/20 14:40 14:50 14:50 WBC RBC Hgb Hct MCV MCH MCHC RDW Std Deviation RDW Coeff of Paola Plt Count MPV Immature Gran % (Auto) Neut % (Auto) Lymph % (Auto) [place] % (Auto) Eos % (Auto) Baso % (Auto) Absolute Neuts (auto) Absolute Lymphs (auto) Nucleated RBC % D-Dimer Quant (PE/DVT) 0.29 Sodium Potassium Chloride Carbon Dioxide Anion Gap BUN Creatinine Estim Creat Clear Calc Est GFR (MDRD) Af Amer Est GFR (MDRD) Non-Af BUN/Creatinine Ratio Glucose Lactic Acid Calcium Total Bilirubin AST ALT Alkaline Phosphatase Total Protein Albumin Globulin Albumin/Globulin Ratio Procalcitonin 0.05 COVID-19 ([facility]) Not Detected 02/04/20 02/04/20 02/04/20 14:50 14:50 14:50 WBC 6.2 RBC 5.18 Hgb 15.9 Hct 47.0 MCV 90.7 MCH 30.7 MCHC 33.8 RDW Std Deviation 41.3 RDW Coeff of Paola 12.6 Plt Count 271 MPV 9.9 Immature Gran % (Auto) 1.000 H Neut % (Auto) 54.7 Lymph % (Auto) 28.4 [place] % (Auto) 13.5 H Eos % (Auto) 1.6 Baso % (Auto) 0.8 Absolute Neuts (auto) 3.4 Absolute Lymphs (auto) 1.77 Nucleated RBC % 0 D-Dimer Quant (PE/DVT) Sodium 139 Potassium 3.9 Chloride 108 H Carbon Dioxide 26.0 Anion Gap 5 BUN 7 Creatinine 0.80 Estim Creat Clear Calc 125.50 Est GFR (MDRD) Af Amer 135 Est GFR (MDRD) Non-Af 111 BUN/Creatinine Ratio 8.7 L Glucose 96 Lactic Acid 1.9 Calcium 9.2 Total Bilirubin 0.40 AST 141 H ALT 214 H Alkaline Phosphatase 100 Total Protein 7.7 Albumin 4.1 Globulin 3.6 Albumin/Globulin Ratio 1.1 Procalcitonin COVID-19 ([facility]) - EKG Initial EKG Interpretation: Sinus Rhythm - Medical Decision Making Patient was observed on surveillance monitor throughout his ED stay. Vital signs have been stable. Blood work here is unremarkable including a negative D-dimer today. Chest x-ray is unchanged. Covid PCR is negative. Respiratory viral panel is negative. Because the patient was complaining of a large lump in his throat a CT of his neck was obtained and this is normal. Patient was advised of all his test results. My suspicion is he had another virus causing similar symptoms. I did recommend obtaining a pulse ox so he can watch his vital signs at home. ED Disposition - Plan for ED Patient: Disposition: Home or Assisted Living Diagnosis: Viral syndrome Instructions: ED Viral Syndrome (Adult) Referrals: Rasheed Casey MD [Primary Care Provider] - 1 Week if not improving
--- NOTE | 2020-02-04 15:00 | RAD_ITS ---
STUDY: X-RAY CHEST REASON FOR EXAM: Male, 44 years old. cough TECHNIQUE: AP COMPARISON: 02/01/2020 FINDINGS: EKG leads project over the chest. The lungs are clear but hypo-expanded. There is no demonstrated pleural abnormality. Normal size heart. Normal mediastinum and brandon. Normal visualized pulmonary arteries. Normal visualized aortic arch and descending thoracic aorta. Normal visualized thoracic spine. Normal visualized ribs, clavicles, and shoulders. There is no demonstrated abnormality of the visualized soft tissue structures of the upper abdomen. RAD/Chest 1 View (Portable) IMPRESSION: Stable, nonacute portable x-ray examination of the chest. Electronically Signed: Serge Gonzalez MD ([place]) at 15:12 EST , Service support ,
[2020-02-04 15:03] LABS: Absolute Lymphocyte Count 1.77 X10^3/uL (0.83-4.51); Absolute Neutrophil Count 3.4 X10^3/uL (2.0-7.7); Basophil# 0.05 X10^3/uL; Basophil% 0.8 % (0-1); Eosinophils% 1.6 % (0-5); Hemoglobin 15.9 g/dL (13.0-16.5); Lymphocyte # 1.77 X10^3/ul (4.0); Lymphocyte % 28.4 % (19-41); Mean Corp Hgb Conc 33.8 g/dL (32-36); Mean Corpuscular Hgb 30.7 pg (27.0-32.0); Mean Corpuscular Volume 90.7 fL (80-94); Mean Platelet Vol. 9.9 fl (6.2-12.0); Monocyte# 0.84 X10^3/uL; Monocyte% 13.5 % (0-10); NRBC Flagged by Analyzer 0 % (0-5); Neutrophil # 3.41 X10^3/uL (2.7-7.7); Neutrophil % 54.7 % (47-70); Platelet Count 271 K/mm3 (150-450); RBC Distribution Width CV 12.6 % (11.6-14.6); RBC Distribution Width SD 41.3 fl (35.1-43.9); Red Blood Count 5.18 M/mm3 (4.6-6.2); White Blood Count 6.2 K/mm3 (4.4-11.0)
[2020-02-04 15:18] LABS: D-Dimer Quantitative (DVT/PE) 0.29 FEU/ug/m (0.27-0.49)
[2020-02-04 15:20] LABS: ALB/GLOB Ratio 1.1 RATIO (0.9-2.4); AST(SGOT) 141 U/L (15-37); Alanine Aminotransfer ALT/SGPT 214 U/L (16-61); Albumin, Serum 4.1 g/dL (3.2-5.0); Alkaline Phosphatase 100 U/L (45-117); Anion Gap 5 (5-15); BUN 7 mg/dL (7-18); BUN/Creat Ratio 8.7 RATIO (10-20); Calcium,Total 9.2 mg/dL (8.5-10.1); Chloride 108 mmol/L (98-107); EST Glomerular Filtration Rate 111 mL/min (>60); Est Glom Filt Rate - Afr Amer 135 mL/min (>60); Globulin 3.6 g/dL (2.2-4.2); Glucose 96 mg/dL (74-106); Potassium 3.9 mmol/L (3.5-5.1); Protein, Total 7.7 g/dL (6.4-8.2); Sodium Level 139 mmol/L (136-145)
[2020-02-04 15:29] LABS: Procalcitonin 0.05 ng/mL (0.00-0.09)
[2020-02-04 15:44] LABS: Lactic Acid 1.9 mmol/L (0.4-1.9)
--- NOTE | 2020-02-04 16:18 | CT_ITS ---
STUDY: CT SOFT TISSUE NECK WITH CONTRAST REASON FOR EXAM: Male, 44 years old. INCREASED SOB, COUGH, PENDING COVID TEST, HX-BRAIN CA WITH SURG ONLY RADIATION DOSAGE (If Supplied By Facility): CTDIvol = ( 16.93 ) mGy, DLP = ( 532.87 ) mGycm TECHNIQUE: The patient was scanned in a multi-detector CT scanner. High resolution transaxial imaging was performed following intravenous administration of IV 100mL Isovue-370. Sagittal and coronal images were reconstructed. Individualized dose optimization techniques were used for this CT. COMPARISON: None. FINDINGS: Normal bilateral parotid glands. Normal bilateral truck driver's offsider spaces. Normal bilateral parapharyngeal spaces. Normal bilateral carotid spaces. Normal bilateral sublingual and submandibular glands and spaces. Normal visualized nasopharynx. Normal retropharyngeal space. Normal perivertebral space. Normal visualized bilateral faucial tonsils. The visualized tongue, tongue base and oropharynx are normal. The visualized cervical lymph nodes (levels I-) are within normal size limits, and maintain normal morphology. There is no demonstrated solid or cystic mass lesion. There is no abnormal contrast enhancement. Normal epiglottis, bilateral vallecula and hypopharynx. The pre-epiglottic and paraglottic adipose spaces are normal. Normal visualized bilateral piriform sinuses, aryepiglottic folds, vocal cords, and arytenoid-cricoid articulations. Normal subglottic trachea. Normal bilateral lobes of the thyroid gland. Normal visualized paranasal sinuses. Normal visualized cervical spine. Occipital craniectomy. No enhancing lesion in the visualized brain. Lung apices are clear. CT/Soft Tissue Neck WITH Contrast IMPRESSION: Normal enhanced CT examination of the soft tissues of the neck. Prior occipital craniectomy. No visualized intracranial abnormality. Electronically Signed: Latoya Fraga MD at 17:57 EST Tel , Service support ,
[2020-02-04 18:00] VITALS: BP 141/67; PULSE 85; RESP 21; TEMP 36; O2SAT 98
[2020-02-04 18:02] VITALS: BP 141/67; PULSE 85; RESP 21; O2SAT 98
[2020-02-04 18:32] VITALS: BP 141/67; PULSE 86; RESP 22; O2SAT 96
--- NOTE | 2020-02-04 18:32 | ED.RN ---
IV DC'ED, CATHETER INTACT, SMALL GAUZE DRESSING PLACED. DISCHARGE INSTRUCTIONS GIVEN TO AND REVIEWED WITH PATIENT, PATIENT DENIES QUESTIONS OR CONCERNS AND VOICES UNDERSTANDING OF DISCHARGE INSTRUCTIONS. PT AMBULATES OUT OF ROOM WITHOUT DIFFICULTY.
== END 2020-02-04 19:00 | disposition home or self-care (01) ==
PROVIDERS: Emergency Provider Emergency Medicine; PCP Family Medicine
DX: B34.9 Viral infection, unspecified (principal)
CPT/HCPCS: 70491; 71045; 80053; 83605; 84145; 85025; 85379; 87040; 87633; 87635; 93005; 99283; Q9967; A4216; U0002